=== PATIENT | female | born 1990 ===

== ENCOUNTER 2017-10-11 11:00 | Outpatient (CLI) | payer MEDICAID | END 2017-10-11 11:01 | disposition home or self-care (01) | LOC: SLR 11:00 | PROVIDERS: ATTEND Otolaryngology | DX: G47.30 Sleep apnea, unspecified (principal); R40.0 Somnolence | CPT/HCPCS: G0399 ==

== ENCOUNTER 2017-11-08 11:00 | Outpatient (CLI) | payer MEDICAID | END 2017-11-08 11:01 | disposition home or self-care (01) | LOC: SLR 11:00 | PROVIDERS: ATTEND Otolaryngology | DX: G47.33 Obstructive sleep apnea (adult) (pediatric) (principal) | CPT/HCPCS: 95811 ==